=== PATIENT | female | born 1975 ===

== ENCOUNTER 2023-11-13 18:52 | Emergency (ER) | payer OTHER, SELFPAY ==
[2023-11-13 18:58] VITALS: BP 127/62
[2023-11-13 19:14] VITALS: BMI 26.8
[2023-11-13 19:15] VITALS: BP 112/76
[2023-11-13 19:31] LABS: % Basophils 0.4 % (0-2); % Eosinophils 6.4 % (0-6); % Immature Granulocytes 0.2 % (0-0.5); % Lymphocytes 45.4 % (20.5-51.1); % Monocytes 9.2 % (1.7-9.3); % Neutrophils 38.4 % (42.2-75.2); Absolute Eosinophils 0.3 10^3/uL (0-0.7); Absolute Lymphocytes 2.4 10^3/uL (1.2-3.4); Absolute Monocytes 0.5 10^3/uL (0.1-0.6); Hematocrit 28.2 % (37.0-47.0); Hemoglobin 8.8 g/dL (12.0-16.0); Mean Corp Hgb Conc. 31.2 g/dL (33.0-37.0); Mean Corpuscular Hgb 20.9 pg (27.0-31.0); Mean Platelet Volume 9.2 fL (7.4-10.4); Nucleated Red Blood Cells % 0 %; Platelet Count 512 10^3/uL (130-400); Red Blood Cell Count 4.21 10^6/uL (4.20-5.40); Red Cell Dist. Width 24.4 % (11.5-14.5); White Blood Cell Count 5.3 10^3/uL (4.8-10.8)
--- NOTE | 2023-11-13 19:41 | ED.GENMED ---
History of Present Illness
General
Chief Complaint: Chest Pain
Source: patient
Time Seen by Provider: 11/13/23 19:28
Travel History
Have you had any contact with someone who has COVID-19?: No
Do you have any symptoms of coronavirus? Fever > 100 degrees, chills, cough, shortness of breath, sore throat, loss of taste or smell, muscle aches, or headache?: No
History of Present Illness
History of Present Illness:
47-year-old female presents to the emergency room complaining of shortness of breath and tightness in her chest. Patient has been experiencing the symptoms for the past couple days. She has history of significant asthma and has not been
experiencing much improvement using her albuterol inhaler at home. Patient does take 10 mg of prednisone on a daily basis and did increase her dose to 20 mg today. Patient denies any fever. There is no pleuritic nature to the pain.
Phy Exam
Physical Exam
Physical Exam:
General: Awake, Alert, Oriented X3. Mild increased work of breathing
Vitals: unremarkable
Head: Atraumatic
Eyes: Pupils equal, EOMI
Throat: Airway intact, no exudates
Neck: Trachea midline
Lungs: Decreased breath sounds bilaterally, x-ray wheezing bilaterally
Heart: Regular rate, no murmurs
Abd: Soft, Nontender, No pulsatile mass
Neuro: Nonfocal
Skin: Warm, dry, no rash
Extremities: pulses equal b/l, no edema
Scores
Heart Score for Chest Pain Patients
STEMI patient?: Not applicable
Course
Orders/Labs/Results
Orders:
Orders
11/13/23 18:54
Electrocardiogram (*1) Urgent
Reason for Study: Chest Pain
Cardiac Monitoring- Treatment ONCE
EKG- Treatment ONCE
IV Insert/Care/Rem.- Treatment PRN
O2 Therapy [RESP] Urgent
Titrate/Wean O2 to maintain O2 sat greater than (%): 90
Special Instructions: Maintain sats >/=90%
Pulse Ox/spot Check [RESP] Urgent
Quantity: 1
Special Instructions: ON ROOM AIR
11/13/23 19:15
Complete Blood Count/With Diff Urgent
Comprehensive Metabolic Panel Urgent
Troponin I Urgent
11/13/23 19:39
Albuterol Sulfate [Ventolin Nebules] 7.5 mg INH R NOW STA
Ipratropium Nebs [Atrovent Nebules] 1 mg INH R NOW STA
Prednisone [Deltasone] 60 mg PO NOW STA
Abnormal Lab Results
11/13/23
19:15
Hgb 8.8 L g/dL
(12.0-16.0)
Hct 28.2 L %
(37.0-47.0)
MCV 67.0 L fL
(81.0-99.0)
MCH 20.9 L pg
(27.0-31.0)
MCHC 31.2 L g/dL
(33.0-37.0)
RDW 24.4 H %
(11.5-14.5)
Plt Count 512 H 10^3/uL
(130-400)
Neutrophils % 38.4 L %
(42.2-75.2)
Eosinophils % 6.4 H %
(0-6)
Creatinine 0.4 L mg/dL
(0.6-1.0)
AST 49 H U/L
(14-36)
Albumin 3.4 L g/dl
(3.5-5.0)
11/13/23 19:15
11/13/23 19:15
Vital Signs
Initial and Last Documented VS:
Initial Vital Signs
Temp Pulse Resp BP Pulse Ox
98.1 F 138 30 127/62 100
11/13/23 18:58 11/13/23 18:58 11/13/23 18:58 11/13/23 18:58 11/13/23 18:58
Last Documented Vital Signs
Temp Pulse Resp BP Pulse Ox
98.1 F 108 17 138/86 96
11/13/23 18:58 11/13/23 22:30 11/13/23 22:30 11/13/23 22:00 11/13/23 22:30
MDM/Problems Addressed
Differential Diagnosis Includes:
Asthma exacerbation, symptomatic anemia
MDM/Problems Addressed:
Patient treated with hour-long nebs. Significant improvement in her symptoms. She was able to ambulate about the department. She does not feel 100% but feels well enough to go home. Patient will be discharged on a tapering course of prednisone.
Also prescription sent for nebulized albuterol. Recommend patient follow-up with pulmonary.
Acute Exacerbation and/or Progression of Chronic Illness: Asthma
*Pulse Oximetry
Patient hypoxic: no
*EKG
Interpreted by ED Provider?: Yes
Heart Rate: 110
Rate: tachycardiac
Rhythm: sinus tachycardia
Interval: normal interval
QRS Pattern: normal QRS
Ischemia: no ischemia
*Auditor Medical Claims Interpretation
Rate: tachycardiac
Heart Rate: 110
Rhythm: sinus tachycardia
*Critical Care Note
Total Time (30-74mins, 75-104mins- exclusive of procedures): Not Applicable
ED Attending Note
-
Portions of this chart may have been created with voice recognition software.� Occasional wrong word or��sound alike� substitutions may have occurred due to the inherent limitations of voice recognition software.
Discharge Plan
Departure
Patient Disposition: Home (Routine Discharge)
Date of Disposition: 11/13/23
Time of Disposition: 22:38
Patient with high blood pressure during this ER visit?: No
Condition: Good
Discharge Problem:
Asthma exacerbation
Instructions: Asthma, Adult ED
Prescriptions:
New
prednisone 10 mg tablet
10 mg PO DIRECTED Qty: 27 0RF
Rx Instructions:
4 tabs daily for 3 days, then 3 tabs daily for 3 days, 2 tabs daily for 3 days, then resume normal dose of 10mg.
albuterol sulfate 2.5 mg /3 mL (0.083 %) solution for nebulization
2.5 mg inhalation Q6H Qty: 180 0RF
No Action
buprenorphine-naloxone 8-2 mg film
1 film buccal BID
Patient Comments:
PATIENT [employer]USTRIAL [employer]ENT ON 09/05 #56
ferrous sulfate [FeroSul] 325 mg (65 mg iron) Tablet
325 mg PO DAILY Qty: 30 0RF
budesonide-formoterol 160-4.5 mcg/actuation HFA aerosol inhaler
2 puff inhalation BID Qty: 10.2 0RF
albuterol sulfate [ProAir HFA] 90 mcg/actuation HFA aerosol inhaler
2 puff inhalation Q6H PRN (Reason: shortness of breath or wheezing) Qty: 6.7 1RF
omeprazole 20 mg capsule,delayed release(DR/EC)
20 mg PO DAILY Qty: 30 0RF
Referrals:
Gera Negron MD [Active] -
NONE,* [Family Provider] -
Activity Restrictions/Additional Instructions:
Please follow-up your primary care doctor in the next few days. I have sent a prescription for a prednisone taper to the pharmacy. You will take 40 mg for 3 days then 30mg for 3 days then 20mg for 3 days and then resume your normal dose of 10 mg a
day. Return if you feel you are getting worse in any way. I have provided contact information for you to contact the customer trainer locally if you do not already have a customer trainer.
Interventions
Interventions:
*Risk Screen - Suicide Last Done: 11/13/23 18:58
*General Assessment Last Done: 11/13/23 18:58
*Neglect/Abuse Screening Last Done: 11/13/23 18:58
ED- Fall Risk Assessment Last Done: 11/13/23 18:58
*ED COVID-19 Vaccine History Last Done: 11/13/23 18:58
*Nursing Disposition Last Done: 11/13/23 22:50
ED- Cardiac Assessment Last Done: 11/13/23 19:13
Discharge Date and Time
Discharge Date/Time: 11/13/23 22:52
[2023-11-13 19:43] LABS: ALT (SGPT) 32 U/L (0-35); AST (SGOT) 49 U/L (14-36); Albumin 3.4 g/dl (3.5-5.0); Alkaline Phosphatase 80 U/L (38-126); Blood Urea Nitrogen 8 mg/dl (7-17); Carbon Dioxide 27 mmol/L (22-30); Chloride 103 mmol/L (98-107); Estimated Creatinine Clearance 107 ml/min; Glucose 85 mg/dl (70-99); Potassium 3.9 mmol/L (3.5-5.1); Sodium 137 mmol/L (135-145); Total Bilirubin 0.9 mg/dl (0.2-1.3); Total Protein 6.8 g/dl (6.3-8.2); eGFR > 60.00
[2023-11-13] MEDS: DELTASONE 60 MG PO (19:44)
[2023-11-13] MEDS: VENTOLIN NEBULES 7.5 MG INH (19:46)
[2023-11-13] MEDS: ATROVENT NEBULES 1 MG INH (19:46)
[2023-11-13 19:53] LABS: Anisocytosis 1+; Normal RBC Morphology No; Troponin I < 0.012 ng/ml
[2023-11-13 19:54] LABS: Macrocytosis Slight; Ovalocytes Slight; Poikilocytosis Slight
[2023-11-13 19:55] LABS: Microcytosis Slight
[2023-11-13 20:00] VITALS: BP 118/77
[2023-11-13 21:00] VITALS: BP 125/82
[2023-11-13 22:00] VITALS: BP 138/86
== END 2023-11-13 22:52 | disposition home or self-care (01) ==
LOC: EMR 18:52
PROVIDERS: Emergency Medicine; EMERGENCY PHYSICIAN Emergency Medicine
DX: J45.901 Unspecified asthma with (acute) exacerbation (principal)
CPT/HCPCS: 99284; 94640; 80053; 84484; 85025; 93005

== ENCOUNTER 2024-02-22 20:16 | Inpatient (IN) | payer OTHER, SELFPAY ==
[2024-02-22] VITALS (10 sets, daily range): BP systolic 127–154; BP diastolic 67–94; BMI 27.0; BMI 26.2
[2024-02-22] MEDS: ADRENALIN 0.299999999999999989 MG IM (17:53)
[2024-02-22] MEDS: VENTOLIN NEBULES 10 MG INH (17:54)
[2024-02-22] MEDS: DUONEB 3 ML INH ×2 (17:55→20:59)
[2024-02-22] MEDS: MAGNESIUM SULFATE 50 IV (17:55)
[2024-02-22] MEDS: SOLU-MEDROL PF 125 MG IV (17:56)
[2024-02-22 18:04] LABS: Venous Blood Gas B.E. 2.5 mmol/L (-4 to +4); Venous Blood Gas HCO3 28.7 mmol/L (22-27); Venous Blood Gas O2 Sat % 79.1 %; Venous Blood Gas pCO2 52 mmHg (35-48); Venous Blood Gas pH 7.35 (7.32-7.43); Venous Blood Gas pO2 49 mmHg (30-50)
[2024-02-22 18:09] LABS: % Basophils 0.8 % (0-2); % Eosinophils 6.7 % (0-6); % Immature Granulocytes 0.2 % (0-0.5); % Lymphocytes 55.7 % (20.5-51.1); % Monocytes 10.8 % (1.7-9.3); % Neutrophils 25.8 % (42.2-75.2); Absolute Eosinophils 0.3 10^3/uL (0-0.7); Absolute Lymphocytes 2.7 10^3/uL (1.2-3.4); Absolute Monocytes 0.5 10^3/uL (0.1-0.6); Absolute Neutrophils 1.3 10^3/uL (1.4-6.5); Hematocrit 29.1 % (37.0-47.0); Hemoglobin 8.3 g/dL (12.0-16.0); Mean Corp Hgb Conc. 28.5 g/dL (33.0-37.0); Mean Corpuscular Hgb 18.5 pg (27.0-31.0); Mean Corpuscular Volume 64.8 fL (81.0-99.0); Nucleated Red Blood Cells % 0 %; Platelet Count 299 10^3/uL (130-400); Red Blood Cell Count 4.49 10^6/uL (4.20-5.40); Red Cell Dist. Width 22.8 % (11.5-14.5); White Blood Cell Count 4.9 10^3/uL (4.8-10.8)
--- NOTE | 2024-02-22 18:11 | ED.GENMED ---
History of Present Illness
<Dewayne Watts PA-C - Last Filed: 02/22/24 23:41>
General
Chief Complaint: Breathing Problem
Time Seen by Provider: 02/22/24 17:47
Travel History
Have you had any contact with someone who has COVID-19?: No
Do you have any symptoms of coronavirus? Fever > 100 degrees, chills, cough, shortness of breath, sore throat, loss of taste or smell, muscle aches, or headache?: No
History of Present Illness
History of Present Illness:
48-year-old female presents in acute respiratory distress. She has a history of asthma/COPD and prior pulmonary embolism. Has a history of intubation for asthma. States she is felt short of breath for the past 3 days that she has been taking 40
mg prednisone, typically on 10 mg maintenance. Abruptly worse while driving to her daughter's house in [place] today prompting her to come to the emergency department
Review of Systems
<Dewayne Watts PA-C - Last Filed: 02/22/24 23:41>
Review of Systems
Allergies reviewed?: Yes
All Other Systems: ROS reviewed and negative except as documented in HPI and ROS
Phy Exam
<Dewayne Watts PA-C - Last Filed: 02/22/24 23:41>
Physical Exam
Physical Exam:
GEN: Toxic appearing, tachypneic with gasping breaths
HEENT: Oral mucosa moist, no scleral icterus
Cardiac: Tachycardic, regular
Lung: Acute respiratory distress/failure with gasping breaths and minimal air movement
MSK: No gross deformity or injuries
Skin: Good color, no pallor or jaundice, no rashes
Neuro: AO x3, moves all extremities freely
Psych: Calm, cooperative
Scores
<Dewayne Watts PA-C - Last Filed: 02/22/24 23:41>
Heart Failure Risk
Heart Failure Risk Score: Not Applicable
Course
<Dewayne Watts PA-C - Last Filed: 02/22/24 23:41>
Orders/Labs/Results
Orders:
Orders
02/22/24 17:46
EPINEPHrine PF [Adrenalin] 1 mg .ROUTE .STK-MED ONE
Magnesium Sulfate 2 Gram/50 ml [Magnesium Sulfate] 2 gram in 50 ml .ROUTE .STK-MED
MethylPREDNISolone PF [Solu-Medrol Pf] 125 mg .ROUTE .STK-MED ONE
02/22/24 17:47
Albuterol Sulfate [Ventolin Nebules] 10 mg INH R NOW STA
EPINEPHrine PF [Adrenalin] 0.3 mg IM NOW STA
Ipratropium/Albuterol Sulfate [Duoneb] 3 ml INH R NOW ONE
Magnesium Sulfate 2 Gram/50 ml [Magnesium Sulfate] 2 gram in 50 ml IV NOW
02/22/24 17:48
CR Chest Portable - 1 View Urgent
Comment:
Reason For Exam: SOB
Reason Study Needs to be Portable: Patient Unstable
02/22/24 17:55
MethylPREDNISolone PF [Solu-Medrol Pf] 125 mg IV NOW STA
02/22/24 17:57
Complete Blood Count/With Diff Urgent
Comprehensive Metabolic Panel Urgent
Venous Blood Gas Urgent
%Oxygen/Room Air: 98
02/22/24 18:30
EPINEPHrine 4 mg/250 mL NSS [Adrenalin] 4 mg in 250 ml IV PER PROTOCOL
Initial dose in mcg/min, then titrate:: 5
Titrate to keep:: Other
Titrate to keep other:: titrate to respiratory effort
Titrate by mcg/min:: 0.5-1 mcg/min
Frequency of titrations (minutes):: 5
Maximum dose in mcg/min:: 10
Begin to taper infusion when:: Remained at goal for 4hrs
Taper by mcg/min:: 0.5-1 mcg/min
Frequency of taper (minutes) if patient maintains goal:: 30
Taper to off?: Yes
If infusion off & no longer maintaining goal:: Contact Provider
02/22/24 19:54
COVID-19 Antigen Routine
Source: Nasal Swab
Procalcitonin Routine
PCT Algorithmm Indication: Respiratory
Influenza A+B Rapid Molecular Routine
ALMA DELIA Source: Nasal Swab
Specimen Description:
02/22/24 19:57
Admit/Transfer Patient As Directed
Co-Sign Provider:
Level of Care: Inpatient admission
Assign to:: ICU
Physician / Group: maverick
Diagnosis: Acute severe perssitent asthma with acute asthma flare : HX ICU and VDRF
Reason for Hospitalization: Acute severe perssitent asthma with acute asthma flare : HX ICU and intubation
Expected length of stay greater than two midnights?: Yes
ELOS- Estimated Length of Stay in days: 5
I certify the patient meets the requirements for IP care: Yes
02/22/24 19:59
Code Status As Directed
Resuscitation Status: Full Code
02/22/24 20:44
Buprenorphine [Subutex] 8 mg SL BID
Dexamethasone Sod Phosphate [Decadron] 6 mg IV Q6H
Heparin 5,000 units SC Q12
Ipratropium/Albuterol Sulfate [Duoneb] 3 ml INH R Q4HPRN PRN
Ipratropium/Albuterol Sulfate [Duoneb] 3 ml INH R QID
02/22/24 20:44
Tongue Stitcher Consult Routine
Consulting Provider: Gera Negron
Was physician already notified: Yes
Reason for consult: acute severe persistent asthma flare
Activity As Directed
Activity Level: With Assistance
Intake/ Output As Directed
Frequency: Per unit guidelines
Vital Signs As Directed
Frequency: Per unit guidelines
Copd Education [RESP] Routine
O2 Therapy [RESP] Routine
Titrate/Wean O2 to maintain O2 sat greater than (%): 94
Special Instructions: adjust, if necessary, to avoid hyperoxia in CO2 retainers.
Use High Flow O2 if necessary
Rx Pep / Acapela [RESP] Routine
DX Deep Vein Thrombosis Video Routine
02/23/24 Breakfast
Regular
At Your Request: Full Participation
Basic Metabolic Panel IN AM
Complete Blood Count/With Diff IN AM
02/23/24 08:00
Pantoprazole [Protonix] 40 mg PO DAILY
Abnormal Lab Results
02/22/24
17:57
Hgb 8.3 L g/dL
(12.0-16.0)
Hct 29.1 L %
(37.0-47.0)
MCV 64.8 L fL
(81.0-99.0)
MCH 18.5 L pg
(27.0-31.0)
MCHC 28.5 L g/dL
(33.0-37.0)
RDW 22.8 H %
(11.5-14.5)
Absolute Neuts (auto) 1.3 L 10^3/uL
(1.4-6.5)
Neutrophils % 25.8 L %
(42.2-75.2)
Lymphocytes % 55.7 H %
(20.5-51.1)
Monocytes % 10.8 H %
(1.7-9.3)
Eosinophils % 6.7 H %
(0-6)
VBG pCO2 52 H mmHg
(35-48)
VBG HCO3 28.7 H mmol/L
(22-27)
Creatinine 0.5 L mg/dL
(0.6-1.0)
02/22/24 17:57
02/22/24 17:57
Vital Signs
Initial and Last Documented VS:
Initial Vital Signs
Temp Pulse Resp BP Pulse Ox
99.6 F 114 22 154/94 99
02/22/24 17:36 02/22/24 17:36 02/22/24 17:36 02/22/24 17:36 02/22/24 17:36
Last Documented Vital Signs
Temp Pulse Resp BP Pulse Ox
98.3 F 102 17 141/75 98
02/22/24 22:54 02/22/24 23:30 02/22/24 23:30 02/22/24 23:00 02/22/24 23:30
<Andrew Grossman, DO - Last Filed: 02/22/24 18:28>
Orders/Labs/Results
Orders:
Orders
02/22/24 17:46
EPINEPHrine PF [Adrenalin] 1 mg .ROUTE .STK-MED ONE
Magnesium Sulfate 2 Gram/50 ml [Magnesium Sulfate] 2 gram in 50 ml .ROUTE .STK-MED
MethylPREDNISolone PF [Solu-Medrol Pf] 125 mg .ROUTE .STK-MED ONE
02/22/24 17:47
Albuterol Sulfate [Ventolin Nebules] 10 mg INH R NOW STA
EPINEPHrine PF [Adrenalin] 0.3 mg IM NOW STA
Ipratropium/Albuterol Sulfate [Duoneb] 3 ml INH R NOW ONE
Magnesium Sulfate 2 Gram/50 ml [Magnesium Sulfate] 2 gram in 50 ml IV NOW
02/22/24 17:48
CR Chest Portable - 1 View Urgent
Comment:
Reason For Exam: SOB
Reason Study Needs to be Portable: Patient Unstable
02/22/24 17:55
MethylPREDNISolone PF [Solu-Medrol Pf] 125 mg IV NOW STA
02/22/24 17:57
Complete Blood Count/With Diff Urgent
Comprehensive Metabolic Panel Urgent
Venous Blood Gas Urgent
%Oxygen/Room Air: 98
02/22/24 18:30
EPINEPHrine 4 mg/250 mL NSS [Adrenalin] 4 mg in 250 ml IV PER PROTOCOL
Initial dose in mcg/min, then titrate:: 5
Titrate to keep:: Other
Titrate to keep other:: titrate to respiratory effort
Titrate by mcg/min:: 0.5-1 mcg/min
Frequency of titrations (minutes):: 5
Maximum dose in mcg/min:: 10
Begin to taper infusion when:: Remained at goal for 4hrs
Taper by mcg/min:: 0.5-1 mcg/min
Frequency of taper (minutes) if patient maintains goal:: 30
Taper to off?: Yes
If infusion off & no longer maintaining goal:: Contact Provider
02/22/24 19:54
COVID-19 Antigen Routine
Source: Nasal Swab
Procalcitonin Routine
PCT Algorithmm Indication: Respiratory
Influenza A+B Rapid Molecular Routine
ALMA DELIA Source: Nasal Swab
Specimen Description:
02/22/24 19:57
Admit/Transfer Patient As Directed
Co-Sign Provider:
Level of Care: Inpatient admission
Assign to:: ICU
Physician / Group: [email or web address]
Diagnosis: Acute severe perssitent asthma with acute asthma flare : HX ICU and VDRF
Reason for Hospitalization: Acute severe perssitent asthma with acute asthma flare : HX ICU and intubation
Expected length of stay greater than two midnights?: Yes
ELOS- Estimated Length of Stay in days: 5
I certify the patient meets the requirements for IP care: Yes
02/22/24 19:59
Code Status As Directed
Resuscitation Status: Full Code
02/22/24 20:44
Buprenorphine [Subutex] 8 mg SL BID
Dexamethasone Sod Phosphate [Decadron] 6 mg IV Q6H
Heparin 5,000 units SC Q12
Ipratropium/Albuterol Sulfate [Duoneb] 3 ml INH R Q4HPRN PRN
Ipratropium/Albuterol Sulfate [Duoneb] 3 ml INH R QID
02/22/24 20:44
Tongue Stitcher Consult Routine
Consulting Provider: Gera Negron
Was physician already notified: Yes
Reason for consult: acute severe persistent asthma flare
Activity As Directed
Activity Level: With Assistance
Intake/ Output As Directed
Frequency: Per unit guidelines
Vital Signs As Directed
Frequency: Per unit guidelines
Copd Education [RESP] Routine
O2 Therapy [RESP] Routine
Titrate/Wean O2 to maintain O2 sat greater than (%): 94
Special Instructions: adjust, if necessary, to avoid hyperoxia in CO2 retainers.
Use High Flow O2 if necessary
Rx Pep / Acapela [RESP] Routine
DX Deep Vein Thrombosis Video Routine
02/23/24 Breakfast
Regular
At Your Request: Full Participation
Basic Metabolic Panel IN AM
Complete Blood Count/With Diff IN AM
02/23/24 08:00
Pantoprazole [Protonix] 40 mg PO DAILY
Abnormal Lab Results
02/22/24
17:57
Hgb 8.3 L g/dL
(12.0-16.0)
Hct 29.1 L %
(37.0-47.0)
MCV 64.8 L fL
(81.0-99.0)
MCH 18.5 L pg
(27.0-31.0)
MCHC 28.5 L g/dL
(33.0-37.0)
RDW 22.8 H %
(11.5-14.5)
Absolute Neuts (auto) 1.3 L 10^3/uL
(1.4-6.5)
Neutrophils % 25.8 L %
(42.2-75.2)
Lymphocytes % 55.7 H %
(20.5-51.1)
Monocytes % 10.8 H %
(1.7-9.3)
Eosinophils % 6.7 H %
(0-6)
VBG pCO2 52 H mmHg
(35-48)
VBG HCO3 28.7 H mmol/L
(22-27)
Creatinine 0.5 L mg/dL
(0.6-1.0)
02/22/24 17:57
02/22/24 17:57
Vital Signs
Initial and Last Documented VS:
Initial Vital Signs
Temp Pulse Resp BP Pulse Ox
99.6 F 114 22 154/94 99
02/22/24 17:36 02/22/24 17:36 02/22/24 17:36 02/22/24 17:36 02/22/24 17:36
Last Documented Vital Signs
Temp Pulse Resp BP Pulse Ox
98.3 F 102 17 141/75 98
02/22/24 22:54 02/22/24 23:30 02/22/24 23:30 02/22/24 23:00 02/22/24 23:30
<Dewayne Watts PA-C - Last Filed: 02/22/24 23:41>
MDM/Problems Addressed
MDM/Problems Addressed:
Due to the patient's severe history and severe presentation she was treated aggressively with IM epinephrine, IV magnesium bolus, IV steroids as well as hour-long nebulizer, ultimately due to lack of significant improvement she was started on
epinephrine drip with moderate improvement in symptoms. She will be admitted to the intensive care unit for further management. Given that the patient developed wheezing after initial neb treatment and had clinical improvement on epinephrine I do
not have any concern for PE particular given her lack of hypoxia, chest x-ray shows no evidence for infectious etiology
<Dewayne Watts PA-C - Last Filed: 02/22/24 23:41>
*Critical Care Note
Total Time (30-74mins, 75-104mins- exclusive of procedures): 60 minutes
comment:
Critical care time: 60 minutes
Critical care time was exclusive of: Separately billable procedures, treating other patients, and teaching time
Critical care was necessary to treat or prevent imminent or life-threatening deterioration of the following conditions: Acute respiratory failure/status asthmaticus
Critical care time spent personally by me on the following activities:
[x] Review of old charts
[x] Obtaining history from patient or surrogate
[x] Ordering and review of the laboratory studies
[x] Ordering and review of radiographic studies
[x] Ordering and performing treatments and interventions
[x] Patient patient's response to treatment
[x] Development of treatment plan with patient or surrogate
ED Attending Note
<Dewayne Watts PA-C - Last Filed: 02/22/24 23:41>
-
Portions of this chart may have been created with voice recognition software.� Occasional wrong word or��sound alike� substitutions may have occurred due to the inherent limitations of voice recognition software.
<Andrew Grossman DO - Last Filed: 02/22/24 18:28>
ED Attending Note
Patient seen and examined by attending physician: Yes
I performed the substantive portion of visit, reviewed & personally made and approve the management plan that is documented in note by myself or WILUBR.: Yes
ED Attending Note:
I have seen and evaluated the patient with a [id number] encounter. I have spoken to the advance practicer provider and involved in the medical history, the physical exam, medical decision making.
Evaluation and management service: agree unless noted differently below.
Results interpretation: agree unless noted differently below.
Focused HPI: 48-year-old female presenting with significant shortness of breath. Patient has a history of asthma and has been intubated in the past. Patient was brought back immediately
Physical exam: Air hunger, conversational dyspnea, tachypnea, poor air exchange
Medical Decision Making: Patient treated immediately as significant asthma exacerbation with IV steroids and dose of epinephrine. She was given magnesium. Given her significant asthma exacerbation with her being high risk with prior intubations,
patient will ultimately require admission
Update: Soon after receiving the medications, symptoms have improved drastically and patient feeling better
Discharge Plan
Departure
Patient Disposition: Admit
Date of Disposition: 02/22/24
Time of Disposition: 19:12
Admit to: ICU
Presentation/result/management discussed w/ accepting MD/DO: Hospitalist
Discharge Problem:
Asthmaticus, status
Interventions
Interventions:
*Risk Screen - Suicide Last Done: 02/22/24 17:36
*General Assessment Last Done: 02/22/24 17:36
*Neglect/Abuse Screening Last Done: 02/22/24 17:36
ED- Fall Risk Assessment Last Done: 02/22/24 17:45
*ED COVID-19 Vaccine History Last Done: 02/22/24 17:45
*Nursing Disposition Last Done: 02/22/24 20:56
ED- Cardiac Assessment Last Done: 02/22/24 17:45
ED- Pulmonary Assessment Last Done: 02/22/24 17:45
Discharge Date and Time
Discharge Date/Time: 02/22/24 20:57
[2024-02-22 18:24] LABS: ALT (SGPT) 14 U/L (0-35); AST (SGOT) 24 U/L (14-36); Albumin 3.5 g/dl (3.5-5.0); Alkaline Phosphatase 72 U/L (38-126); Blood Urea Nitrogen 8 mg/dl (7-17); Calcium 9.2 mg/dl (8.4-10.2); Carbon Dioxide 28 mmol/L (22-30); Chloride 107 mmol/L (98-107); Estimated Creatinine Clearance 105 ml/min; Glucose 94 mg/dl (70-99); Potassium 3.8 mmol/L (3.5-5.1); Sodium 139 mmol/L (135-145); Total Bilirubin 0.7 mg/dl (0.2-1.3); Total Protein 6.6 g/dl (6.3-8.2); eGFR > 60.00
[2024-02-22] MEDS: ADRENALIN 250 IV (18:33)
[2024-02-22 19:18] LABS: Anisocytosis 1+; Hypochromasia 1+; Normal RBC Morphology No; Poikilocytosis 1+
--- NOTE | 2024-02-22 19:52 | HPS.HSE ---
Addendum entered and electronically signed by Noe Echevarria MD 02/22/24 20:52:
Addendum:
Text discussion with Title I Paraprofessional and ICU CANDY SUPERVISOR
Plan:
- wean Epi gtt overnight
- cont. to close monitoring at ICU
- switch to IV Solumedrol in place of Decadron
Original Note:
Family Physician
-
Family Physician: * NONE
Chief Complaint
-
acute Resp distress
History of Present Illness
HPI
47F Former smoker HX prednisone dependent asthma status post multiple hospitalizations and intubations in the past, HX DVT previously on Coumadin now discontinued),HX opioid dependence on Suboxone, GERD seen at ER for evaluation of acute respiratory
distress:
SoB;
onset of worsening SoB for last 3 days
Currently escaladed PO prednisone to 40mg daily . maintenance dose was 10 mg daily
Used Home Nebs frequently without improvement
Dr Cough
Denied CP but minimal Jr
ROS;
slight Jr but improved. Minimal dry cough. No sputum. Denied contact exposure
At ER :
Received IV Mg , hour long Neb, IM Epi, IV Methyl prednisone 125 mg , now on Epi gtt
- Doing much better on the drip.
Medical History
Past Medical History
Past Medical History: Reports Asthma, GERD and Other (opioid dependence DVT)
Past Surgical History: Reports None
Social History
Tobacco: Former Smoker
Alcohol: None
Drug: Former User
Living: With Family
Family History
Family History: Not pertinent
Allergies / Home Medications
Allergies reflects when Allergies were last updated in [employer].
Home Medications with original date entered in [employer]
Allergy/Medication List:
Allergies
Allergy/AdvReac Type Severity Reaction Status Date / Time
Iodinated Contrast Media Allergy Anaphylaxis Verified 02/22/24 17:36
iodine Allergy Anaphylaxis Verified 02/22/24 17:36
Home Medications
buprenorphine 8 mg-naloxone 2 mg sublingual film 1 film buccal BID OPIOID DEPENDENCE 10/05/23
omeprazole 20 mg capsule,delayed release 20 mg PO DAILY #30 caps 10/08/23
albuterol sulfate 2.5 mg/3 mL (0.083 %) solution for nebulization 2.5 mg inhalation R Q6HPRN PRN sob 02/22/24
albuterol sulfate 90 mcg/actuation aerosol inhaler (ProAir HFA) 2 puff inhalation R Q6HPRN PRN shortness of breath or wheezing 02/22/24
fluticasone 500 mcg-salmeterol 50 mcg/dose blistr powdr for inhalation (Advair Diskus) 1 inh inhalation R BID 02/22/24
prednisone 10 mg tablet 10 mg PO DAILY 02/22/24
Review of Systems
-
Constitutional: Reports No Symptoms
EENT: Reports No Symptoms
Respiratory: Reports See HPI
Cardiac: Reports No Symptoms
Abdomen/GI: Reports No Symptoms
: Reports No Symptoms
Musculoskeletal: Reports No Symptoms
Skin: Reports No Symptoms
Neurological: Reports No Symptoms
Endocrine: Reports No Symptoms
Hematologic/Lymphatic: Reports No Symptoms
Psych: Reports No Symptoms
Physical Exam
Vital Signs
Vital Signs
Temp Pulse Resp BP Pulse Ox
99.6 F 125 20 140/70 98
02/22/24 17:36 02/22/24 19:45 02/22/24 19:45 02/22/24 19:30 02/22/24 19:45
Physical Exam
General: No Apparent Distress, Comfortable and Conversant
HEENT: NormoCephalic, Anicteric and Moist mucous membranes
Respiratory: Other (symmetric reduced AE. No wheeze per se )
Cardiac: S1/S2, Regular Rhythm and Tachycardia; No Murmur
Breast: Deferred by me
GI: Soft, Non Tender, Non Distended and Normal Bowel Sounds
Rectal: Deferred by Provider
Genito-urinary: Deferred by me
Musculoskeletal: No Edema
Skin: Warm and Dry
Neuro: AO x 3
Psych: Calm
Laboratory Results
-
02/22/24 17:57
02/22/24 17:57
Laboratory Results
Total Bilirubin 0.7 mg/dl (0.2-1.3) 02/22/24 17:57
AST 24 U/L (14-36) 02/22/24 17:57
ALT 14 U/L (0-35) 02/22/24 17:57
Alkaline Phosphatase 72 U/L (38-126) 02/22/24 17:57
Data Reviewed
-
Diagnostic Radiology: Report Reviewed by me
Lab Data: Labs Reviewed by me
Old Records: Reviewed
Impression/Plan
-
Reviewed VS:normotensive. T 99.6 HR 120 BP 155/95 RR22--> 18 POx 99%
Data
nl WCC
Hgb 8.3 - was 8.8 on 11/13/23
nl Cr and nl GFR
HCO3 28
VB.35/ pCO2 52, pO2 49
nl LFts
Pending Flu A & B. Pending Covid Ag
CXR
There is an extrinsic presumed breathing device overlying the right lung apex limiting evaluation for parenchymal airspace disease at the right lung apex. The lungs are otherwise clear. If clinically indicated, the study could be repeated without
the overlying breathing device
10/06/23 LExs US
NEG DVTs
10/06/23 VQ scan: normal
10/08/23 TTE: normal left ventricular function with mild mitral regurgitation, mild to moderate tricuspid regurgitation.
Last hospitalist admission: 10/05/23 - 10/08/23
P Dxs:
Acute asthma exacerbation
Hypokalemia
Anemia, chronic
ASSESSMENT & PLAN
Pending Rx reconciliation
Acute severe persistent asthma with acute asthma flare : HX ICU and intubation
Acute Resp distress with tachycardic
Low grade fever but nl WCC : slight Jr but improved. Minimal dry cough. No sputum. Denied contact exposure
Symmetrically reduced air entry
Mild CO2 retention- compensated acute Resp acidosis
HX Anaphylaxis to contrast
Received IV Mg , hour long Neb, IM Epi, IV Methy prednisone 125 mg , now on Epi gtt
- Pending Flu A & B. Pending Covid Ag
- check PCT
- Doing much better on the Epi gtt
- add IV Decadron 6mg q6H
- DuoNeb qid and PRN
- O2 PRN to keep POx > 94 %
- Accapella
- close monitor at ICU
- Title I Paraprofessional consult
Chr Anemia
- stable Hgb
- HX severe YESSICA and not currently on iron supplementation. MCV is 64.
- Denied HX melena or hematochezia
- pending Ferritin
GERD
- PO PPI daily
HX Substance use
- opioid dependence on maintenance suboxone
- continue Suboxone 2-8.5 daily
DVT Px: SQH
Code: Full
ICU
[2024-02-22 20:22] LABS: COVID-19 Antigen Negative (Negative)
[2024-02-22 20:36] LABS: Procalcitonin < 0.05 ng/ml (0.0-0.25)
--- NOTE | 2024-02-22 21:00 | PTCARENOTE ---
Received pt from ED RN. Pt has epi gtt infusing at 6.5 mcg/min via left AC peripheral IV site. Pt able to stand and walk to ICU bed w/o assistance. Pt is pleasant, A&Ox3, and can move all 4 extremities. Pt denies pain but does note some chest
tightness related to increased respiratory effort. Pt is ST on tele monitor, has +2 edema on left foot, trace edema on left foot, and has palpable pedal pulses. Pt is tachypneic and on RA satting at 98% pulse ox. On auscultation pt lungs sound
clear. Pt's abdomen is round w/ +BS. Pt able to ambulate to bathroom to void. Skin is C/D/I.
[2024-02-22] MEDS: SUBUTEX 8 MG SL (22:08)
[2024-02-22] MEDS: HEPARIN 5000 UNITS SC (22:09)
[2024-02-22] MEDS: SOLU-MEDROL PF 40 MG IV (23:22)
[2024-02-22] MEDS: MELATONIN 10 MG PO (23:22)
--- NOTE | 2024-02-22 23:30 | PTCARENOTE ---
Epi gtt turned off per protocol. Respiratory effort has improved. RR is 14 and patient's HR is now in the 90s, previously tachycardic in the 110s. VSS.
[2024-02-23] VITALS (15 sets, daily range): BP systolic 110–139; BP diastolic 62–85; BMI 27.1; BMI 26.4
--- NOTE | 2024-02-23 05:30 | PTCARENOTE ---
Patient resting comfortably at this time. Pt does not appear to be in respiratory distress. VSS.
[2024-02-23] MEDS: SOLU-MEDROL PF 40 MG IV (05:49)
[2024-02-23 06:01] LABS: % Immature Granulocytes 0.4 % (0-0.5); % Lymphocytes 11.1 % (20.5-51.1); % Monocytes 0.4 % (1.7-9.3); % Neutrophils 88.1 % (42.2-75.2); Absolute Lymphocytes 0.3 10^3/uL (1.2-3.4); Absolute Neutrophils 2.4 10^3/uL (1.4-6.5); Hematocrit 28.1 % (37.0-47.0); Hemoglobin 8.6 g/dL (12.0-16.0); Mean Corp Hgb Conc. 30.6 g/dL (33.0-37.0); Mean Corpuscular Volume 62.2 fL (81.0-99.0); Nucleated Red Blood Cells % 0 %; PT 13.2 Sec (11.4-14.6); Platelet Count 300 10^3/uL (130-400); Red Blood Cell Count 4.52 10^6/uL (4.20-5.40); Red Cell Dist. Width 22.9 % (11.5-14.5); White Blood Cell Count 2.7 10^3/uL (4.8-10.8)
[2024-02-23] MEDS: DUONEB 3 ML INH ×2 (06:01→10:46)
[2024-02-23 06:02] LABS: APTT 29.3 Sec (23.4-35.0)
[2024-02-23 06:06] LABS: Blood Urea Nitrogen 10 mg/dl (7-17); Calcium 9.8 mg/dl (8.4-10.2); Carbon Dioxide 23 mmol/L (22-30); Chloride 107 mmol/L (98-107); Estimated Creatinine Clearance 105 ml/min; Glucose 141 mg/dl (70-99); Potassium 3.8 mmol/L (3.5-5.1); Sodium 138 mmol/L (135-145); eGFR > 60.00
[2024-02-23] MEDS: SUBUTEX 8 MG SL (08:04)
[2024-02-23] MEDS: PROTONIX 40 MG PO (08:04)
[2024-02-23] MEDS: HEPARIN 5000 UNITS SC (08:04)
--- NOTE | 2024-02-23 09:02 | CON.INTV ---
Consultation
Consultation Request
Date/Time Consultation Requested: 02/22/2024 - 2043
Date/Time Consultation Performed: 02/23/2024854
Requesting Provider: Dr. Echevarria
Performing Provider: Dr. Negron
Reason for Consultation: Asthma Exacerbation
Medical History
-
Chief Complaint: SOB
History of Present Illness:
48-year-old female with a past medical history of severe steroid-dependent persistent asthma, GERD, anxiety, depression, chronic opioid use disorder on Suboxone, former tobacco smoker and chronic anemia who presents with SOB. Her SOB has been
worsening over the last 3 days and not improving with her nebulizers at home. She ate has been using her prednisone and escalated up to 40 mg daily and still has not found any improvement. She has a slight dry cough without sputum production.
Initial eosinophil count in the ER was 300, venous blood gas showed adequate ventilation with pH 7.35, pCO2 52. And there were no significant findings on her chemistry. Flu swab and COVID antigen were negative. And CXR showed no acute
cardiopulmonary process. She was given nebulized bronchodilators in the ER with DuoNebs + albuterol, given magnesium, and started on epinephrine drip. Patient then transferred to the ICU for further care and critical care services now consulted
for additional management/recommendations.
When I saw the patient, she was in bed, on her phone speaking to her children, and breathing comfortably. She is on room air saturating 97%. Afebrile overnight. Heart rate 118, and BP 137/75. She says that it is not uncommon for her heart rate
to be in the 100-110s. She denies chest pain, SOB at rest, abdominal pain, fevers or chills. She is eager to go home.
Of note patient follows with us in the [facility] office with last visit on 10/31/[address] Zelaya. Patient has moderate obstruction on spirometry and full PFT was recommended. She was on Symbicort 160mcg with DuoNebs 1�2 times a day and Singulair
was added (10 mg daily), and prednisone 10 mg daily was also started. Biologic therapy was reviewed and it was going to be discussed at her next follow-up in about 6 weeks. Unfortunately she no showed to the PFT. Of note she had previously
followed pulmonary at [facility] and was also evaluated previously at [facility]. She had been diagnosed with asthma at the age of 20 and also been previously diagnosed with COPD. She has never been on biologic therapy and has been maintained on 10
mg daily since she was 20 years old, as per patient.
PMHx: Severe persistent asthma on chronic prednisone, GERD, anxiety, depression and former tobacco use disorder, chronic opioid use on Suboxone, chronic anemia, excessive daytime sleepiness + snoring (has not obtained PSG)
PSHx: section X.3, left ankle surgery
Past Medical History
Past Medical History: Other (Above as per HPI)
Past Surgical History: Other (Above as per HPI)
Social History
Tobacco: Former Smoker (Quit October 2022 and has smoked for 10 pack years)
Alcohol: None
Drug: None
Family History
Family History: Cancer (Mother: Breast cancer)
Allergies / Home Medications
Allergies
Allergy/AdvReac Type Severity Reaction Status Date / Time
Iodinated Contrast Media Allergy Anaphylaxis Verified 02/22/24 17:36
iodine Allergy Anaphylaxis Verified 02/22/24 17:36
Home Medications
�Medication �Instructions �Recorded �Confirmed �Last Taken �Type
buprenorphine 8 mg-naloxone 2 mg 1 film buccal BID OPIOID DEPENDENCE 10/05/23 02/22/24 02/22/24 History
sublingual film
omeprazole 20 mg capsule,delayed 20 mg PO DAILY #30 caps 10/08/23 02/22/24 Unknown Rx
release
albuterol sulfate 2.5 mg/3 mL 2.5 mg inhalation R Q6HPRN PRN sob 02/22/24 02/22/24 Unknown History
(0.083 %) solution for nebulization
albuterol sulfate 90 mcg/actuation 2 puff inhalation R Q6HPRN PRN 02/22/24 02/22/24 Unknown History
aerosol inhaler (ProAir HFA) shortness of breath or wheezing
fluticasone 500 mcg-salmeterol 50 1 inh inhalation R BID 02/22/24 02/22/24 Unknown History
mcg/dose blistr powdr for Lung/Breathing Issues
inhalation (Advair Diskus)
prednisone 10 mg tablet 10 mg PO DAILY 02/22/24 02/22/24 Unknown History
Review of Systems
-
History Source: Patient
All other systems: Negative unless noted
Vitals / Labs / Diagnostic Testing
Vital Signs
Temp Pulse Resp BP Pulse Ox
98.3 F 104 16 110/62 96
02/23/24 07:00 02/23/24 09:45 02/23/24 09:45 02/23/24 09:00 02/23/24 09:45
Lab Data
02/23/24 05:43
02/23/24 05:43
Laboratory Results
02/23/24 02/23/24
00:03 05:43
PT Cancelled 13.2
INR Cancelled 1.00
APTT 29.3
Microbiology
02/22/24 19:54 Nasal Swab Influenza Types A & B (MARY LOU) - Final
Negative for Influenza A & B, NAAT
Negative results must be combined with clinical observations
and patient history.
Nucleic Acid Amplification test (NAAT)performed on the
[employer] platform.
Diagnostic Testing:
Physical Exam
-
HEENT: Normocephalic and Anicteric
Cardiovascular: S1/S2, Peripheral Edema (Negative) and Other (Tachycardic)
Respiratory: Wheeze (Negative), Rales (Negative), Rhonchi (Negative), Non-Labored Respirations and Other (Reduced breath sounds bilaterally)
GI: Soft, Non Distended, Non Tender and Normal Bowel Sounds
Neurology: AO x 3 and Tremors (Negative)
Skin: Warm and Dry
General: Comfortable and Fever (Negative)
Assessment
-
Assessment: 48-year-old female with a past medical history of severe steroid-dependent persistent asthma, moderate COPD, GERD, anxiety, depression, chronic opioid use disorder on Suboxone, former tobacco smoker and chronic anemia who presents with
SOB. Her SOB has been worsening over the last 3 days and not improving with her nebulizers at home. She ate has been using her prednisone and escalated up to 40 mg daily and still has not found any improvement. She has a slight dry cough without
sputum production. Initial eosinophil count in the ER was 300, venous blood gas showed adequate ventilation with pH 7.35, pCO2 52. And there were no significant findings on her chemistry. Flu swab and COVID antigen were negative. And CXR showed
no acute cardiopulmonary process. She was given nebulized bronchodilators in the ER with DuoNebs + albuterol, given magnesium, and started on epinephrine drip. Patient then transferred to the ICU for further care and critical care services now
consulted for additional management/recommendations.
Chronic conditions POLICE DEPARTMENT SECRETARY: Severe persistent asthma on chronic prednisone, moderate COPD, GERD, anxiety, depression and former tobacco use disorder, chronic opioid use on Suboxone, chronic anemia, excessive daytime sleepiness + snoring (has not
obtained PSG)
Impression:
#Acute COPD/asthmatic exacerbation, presumed to be type II, with moderate COPD (seen on spirometry from 10/31/2023)
#COPD due to severe persistent asthma on chronic prednisone (10mg daily)
#Mild restrictive lung defect (per spirometry seen on 10/31/2023)
#Increased eosinophil count likely due to type II asthma
#Former tobacco use disorder
#Chronic opioid use on Suboxone
#Chronic anemia
Plan:
- Start weaning down steroids - wean solumedrol to 40mg IV q8hr today
- Continue DuoNebs QID with prn duonebs for breakthrough symptoms
- Maintain SpO2 >88-94%
- she has been weaned off epinephrine gtt
- She is also s/p magnesium in the ER
- Discharge her on her maintenance inhaler of Advair 500mcg 1 inhalation BID, having her rinse her mouth after use
- Would start her on Incruse Ellipta 62.5mcg as well upon discharge
- Have her continue her nebulized albuterol prn on discharge as well
- I believe she is a candidate for Nucala, and this will be discussed with her in our office
- Maintain MAP>65
- Replete electrolytes with K>4, Mg>2
- Maintain euglycemia with goal BG 140-180
- Incentive spirometer encouraged
- DVT ppx
Of note, she was recommended to follow-up with us in the office however she did not show up to her full PFT testing and she has yet to follow-up with us again with Dr. Zelaya. Her last office visit with us was on 10/31/2023 and I will arrange for
follow-up with us again following her discharge which should be within 1-2 weeks after she is discharged. We will discuss biologic therapy.
Although she was just admitted yesterday, she is now off the epi drip, breathing comfortably at rest, no wheezing on exam, and she is HDN stable. Patient safe for discharge home with close follow up with our office.
Please discharge home on the following prednisone regimen: Prednisone 60mg PO BID x 3 days, 50mg BID x 3 days, 40mg BID x 3 days, 60mg daily x 3 days, 50mg daily x 3 days, 40mg daily x 3 days, 30mg daily x 3 days, 20mg daily x 3 days, then continue
her usual home dose of 10mg daily from there after.
Considering patient is going to be discharged home today, hydropulper operator/Pulmonary service will now sign off. Thank you for allowing us to be involved in the care of this patient. Please reconsult if there are any additional questions/concerns, or if
patient's respiratory status deteriorates.
Total time spent today was 75 minutes for this encounter. Time includes reviewing laboratory test/imaging results, reviewing pertinent medical records, obtaining and reviewing medical history, performing an appropriate exam, ordering medications,
tests and procedures. Time also includes documentation of this encounter, coordinating patient care and communicating with other healthcare professionals. Total time does not include separately billed tests performed on this date of service.
Data:
CXR 02-22-2024:
There is an extrinsic presumed breathing device overlying the right lung apex limiting evaluation for parenchymal airspace disease at the right lung apex.
The lungs are otherwise clear.
If clinically indicated, the study could be repeated without the overlying breathing device
--- NOTE | 2024-02-23 09:50 | W.PN.HOSP.TC ---
Addendum entered and electronically signed by Natalie Rivero MD 02/23/24 13:05:
More than 30 minutes spent in discharge including
Final examination of the patient
Summarizing hospital stay
Instructions for continuing care to all relevant caregivers
Preparation of discharge records, prescriptions, and referral forms
Total time spent (in minutes): 42
Original Note:
Today's Communication/Plan
-
IV steroids/nebs
await pulm input; patient desires DC today
Venous dopplers after pulm review to ensure RLE ankle swelling unrelated to clot
Assessment / Plan
Assessment / Plan
Assessment:
Acute asthma exacerbation with flare
Underlying severe persistent asthma with multiple flares annually from stress, pollen triggers
Prior hx of ICU admissions and intubation
- s/p IV Mag, 1 hour neb, IM followed by IV Drip Epinephrine
- improving
- currently on IV steroids and nebs
- infection workup negative
- ICU/Pulmonary consult
- will benefit from OP Pulm/Allergy
R ankle swelling
- hx of VTE
- check LE dopplers
Chronic Anemia
- Hb stable
- hx of Iron deficiency, not on supplementation currently.
GERD
- PPI daily
Hx of Substance use
- opioid dependence on maintenance Suboxone
- continue Suboxone 2-8.5 daily
DVT ppx: SC heparin
Code: Full
Total Critical Care Time 40 minutes. I was immediately available to the patient and staff. I personally examined, reviewed labs, diagnostic images/reports, interpretations, treatment plans, discussed patient care with other providers and family
or caregivers (if patient is unable to make decisions), entered orders as appropriate and documented the medical record.
Anticipated Discharge: Within 24 hours
Subjective/Interval History
-
Date of Service: February 23, 2024
feels much improved, denies SOB, cough, CP, no fever/chills
she reports that she was under immense stress yesterday so think its likely a flare related to that.
Objective Data
-
Labs:
Laboratory Results
02/23/24 02/23/24
00:03 05:43
WBC 2.7 L
Hgb 8.6 L
Hct 28.1 L
Plt Count 300
PT Cancelled 13.2
INR Cancelled 1.00
APTT 29.3
Sodium 138
Potassium 3.8
Chloride 107
Carbon Dioxide 23
BUN 10
Creatinine 0.4 L
Glucose 141 H
Calcium 9.8
Vital Signs:
Vital Signs
Temp Pulse Resp BP Pulse Ox
98.3 F 98 15 131/75 96
02/23/24 07:00 02/23/24 06:23 02/23/24 06:23 02/23/24 06:23 02/23/24 08:00
Physical Exam
-
General: No Apparent Distress
HEENT: Normocephalic and Atraumatic
Respiratory: Wheezes (faint) and Decreased Breath Sounds
Cardiac: Regular Rhythm, S1/S2 and Tachycardic
GI: Soft and Nontender
Neuro: AO x 3
Hematologic / Lymphatic: No Lymphadenopathy
Psych: Calm
Data Reviewed
-
Critical Care Time (in minutes): 40
Labs: Labs Reviewed by me
--- NOTE | 2024-02-23 10:05 | PTCARENOTE ---
Assumed care of pt at 0700. Patient resting comfortably at this time. Pt does not appear to be in respiratory distress. VSS.
--- NOTE | 2024-02-23 11:04 | CM ---
CM following re: discharge planning.
Reviewed pt's chart, met with pt.
Pt is a 48 year old female, admitted with primary dx of Asthma exacerbation.
Pt reports she lives with 4 children: 16/14 and 10 year old twins in a 2SH, 3 steps to enter. Per pt, children's father is taking care of the children while pt is here at . 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
machine, does not drive. Pt expressed her desire to return back home today and she stated her neighbor will transport home.
PCP: pt stated she does not have PCP. A lsit of PCP offices provided. pt stated [facility].
Pharmacy: [facility]
According to pt will be discharged home today. Pt is aware and she stated her neighbor will transport home. Pt reports she also uses [facility] transport.
D/C plan: home with no needs. Neighbor to transport
--- NOTE | 2024-02-23 12:16 | PTCARENOTE ---
Assessment unchanged. VSS. No SOB
--- NOTE | 2024-02-23 13:04 | W.DS.TRANS ---
DC Summary - Order Planner
-
Discharge Instructions:
Discharge Diagnosis/Procedures acute asthma exacerbation
Diet Regular
Activity As tolerated
Bathing Restrictions None
Instructions:
Stand-Alone Forms:
Changes to Home Medications: No
Discharge Medications:
DC Medications w/original date entered in [employer]
buprenorphine 8 mg-naloxone 2 mg sublingual film 1 film buccal BID OPIOID DEPENDENCE 10/05/23
albuterol sulfate 2.5 mg/3 mL (0.083 %) solution for nebulization 2.5 mg (3 mL) inhalation R Q6HPRN PRN sob #75 mL 02/23/24
albuterol sulfate 90 mcg/actuation aerosol inhaler (ProAir HFA) 2 puff inhalation R Q6HPRN PRN shortness of breath or wheezing #8.5 grams 02/23/24
fluticasone 500 mcg-salmeterol 50 mcg/dose blistr powdr for inhalation 1 inh inhalation R BID Lung/Breathing Issues #60 ea 02/23/24
omeprazole 20 mg capsule,delayed release 20 mg PO DAILY #30 caps 02/23/24
prednisone 10 mg tablet 10 mg PO DIRECTED Anti-Inflammatory #100 tabs 02/23/24
prednisone 10 mg tablet 10 mg PO DAILY #30 tabs 02/23/24
umeclidinium 62.5 mcg/actuation blister powder for inhalation (Incruse Ellipta) 1 inh inhalation DAILY #30 ea 02/23/24
Home Medication Changes
Pending Results: No
Total time spent discharging patient (in min): 42
--- NOTE | 2024-02-23 15:29 | PTCARENOTE ---
Unable to contact u/s tech throughout shift. Pablo texted [facility] u/s tech and was instructed that appropriate tech was in house. Markg chimney supervisor brick notified and also unable to reach tech. Pt stated need to leave at 1530 due to loss of child
care. Refused prednisone dose due to 'making me jittery in front of the kids.' Hospitalist notified unable to get u/s. Okayed to discharge by hospitalist despite no U/S.
[2024-02-23] MEDS: DUONEB INH (15:38)
== END 2024-02-23 16:00 | disposition home or self-care (01) | DRG 191 ==
LOC: ICU 20:16
PROVIDERS: Nurse Practitioner Primary Care; Physician Assistant; ADMITTING PHYSICIAN Internal Medicine; ATTENDING PHYSICIAN Internal Medicine; CONSULT PHYSICIAN Internal Medicine Critical Care Medicine; EMERGENCY PHYSICIAN Student in an Organized Health Care Education/Training Program
DX: J44.1 Chronic obstructive pulmonary disease with (acute) exacerbation (principal); E87.29 Other acidosis; J45.51 Severe persistent asthma with (acute) exacerbation; F11.20 Opioid dependence, uncomplicated; D64.9 Anemia, unspecified; F32.A Depression, unspecified; R06.03 Acute respiratory distress; M25.471 Effusion, right ankle; F41.9 Anxiety disorder, unspecified; K21.9 Gastro-esophageal reflux disease without esophagitis; Z79.52 Long term (current) use of systemic steroids; Z86.711 Personal history of pulmonary embolism; Z86.718 Personal history of other venous thrombosis and embolism; Z87.891 Personal history of nicotine dependence; Z87.892 Personal history of anaphylaxis; Z91.041 Radiographic dye allergy status; Z11.52 Encounter for screening for COVID-19
CPT/HCPCS: 71045; 80048; 80053; 82805; 84145; 85025; 85610; 85730; 87502; 87811; 93005; 94640; 96365; 96366; 96372; 96375; 99291